=== PATIENT | female | born 1955 ===

== ENCOUNTER 2023-03-12 06:05 | Day surgery (SDC) | payer OTHER ==
[~2023-03-12] VITALS: Ht 167.6 cm; Wt 72.6 kg
[~2023-03-12 06:05] MED LIST: ADULT LOW DOSE81 M1 PO; COZAAR25 MG PO; LIPITOR20 MG PO
[2023-03-12] MEDS ORDERED: OXYC1TAB9 PO (07:45)
== END 2023-03-12 16:20 | disposition home or self-care (01) ==
LOC: CIR.AMB 06:05
PROVIDERS: ATTEND Surgery
DX: D12.8 Benign neoplasm of rectum (principal); K62.5 Hemorrhage of anus and rectum; D37.4 Neoplasm of uncertain behavior of colon; K62.0 Anal polyp; K57.30 Diverticulosis of large intestine without perforation or abscess without bleeding; K62.89 Other specified diseases of anus and rectum; Z20.822 Contact with and (suspected) exposure to COVID-19; I10 Essential (primary) hypertension